=== PATIENT | male | born 1980 | race Caucasian/White ===

== ENCOUNTER 2016-07-10 22:18 | Emergency (ER) | payer MEDICAID ==
[~2016-07-10] VITALS: Ht 162.6 cm; Wt 76.6 kg
[~2016-07-10 22:18] MED LIST: BACTDS PO; BEN25 PO; CEPH-443 PO; PRED20TA PO
[2016-07-10 22:22] VITALS: Ht 162.6 cm; Wt 76.6 kg
[2016-07-10] MEDS ORDERED: morphine 2 MG INJ IV STA (23:52)
[2016-07-10] MEDS ORDERED: ONDANSETRON 4 MG INJ IV STA (23:52)
[2016-07-10] MEDS ORDERED: SOD CHLORIDE 0.9% 1,000 ML IV STA (23:52)
--- NOTE | 2016-07-11 00:10 | ERD ---
ER Documentation Chief Complaint Date/Time DATE: 07/11/16 TIME: 00:06 Chief Complaint FEVER AND LLQ ABDOMINAL PAIN SINCE YESTERDAY. NO N/V/D HPI 36-year-old male presents here in emergency department for complaints of left lower quadrant abdominal pain and fever started yesterday. Patient described the pain as sharp pain, 8/10 scale, now they are worse with anything. Patient has history of diverticulitis before. Patient denies any diarrhea or constipation. Patient denies any nausea or vomiting. Patient denies hematuria or dysuria. ROS All systems reviewed and are negative except as per history of present illness. Medications Home Meds Active Scripts Ondansetron (Ondansetron Odt) 4 Mg Tab.rapdis, 4 MG PO Q8 Y for NAUSEA AND/OR VOMITING, #30 TAB Prov:WING GUNDERSON D[employer]CLOTH FOLDER 07/11/16 Hydrocodone/Acetaminophen ([place] 5-325 Tablet) 1 Each Tablet, 1 TAB PO Q6H Y for SEVERE PAIN LEVEL 7-10, #20 TAB Prov:WING GUNDERSON NP 07/11/16 Ciprofloxacin Hcl* (Ciprofloxacin Hcl*) 500 Mg Tablet, 500 MG PO BID for 10 Days , TAB Prov:WING GUNDERSON NP 07/11/16 Metronidazole* (Flagyl*) 500 Mg Tablet, 500 MG PO TID for 10 Days, TAB Prov:WING GUNDERSON NP 07/11/16 Diphenhydramine Hcl* (Benadryl*) 25 Mg Cap, 25 MG PO Q6, #20 CAP Prov:JULIANA ROQUE PA-C 07/18/15 Prednisone* (Prednisone*) 20 Mg Tab, 40 MG PO DAILY for 4 Days, TAB Prov:JULIANA ROQUE PA-C 07/18/15 Sulfamethoxazole-Trimethoprim* (Bactrim* DS) 800-160 Mg Tab, 1 TAB PO BID for 5 Days, TAB Prov:JULIANA ROQUE PA-C 07/18/15 Cephalexin* (Keflex*) 500 Mg Capsule, 500 MG PO QID for 5 Days, CAP Prov:JULIANA ROQUE PA-C 07/18/15 Allergies Allergies: Coded Allergies: No Known Allergy (Unverified , 08/15/14) PMhx/Soc History of Surgery: No Anesthesia Reaction: No Hx Neurological Disorder: No Hx Respiratory Disorders: No Hx Psychiatric Problems: No Hx Miscellaneous Medical Probl: Yes (blood in urine 11/23) Hx Alcohol Use: Yes (hx of etoh abuse, now 3x/ week) Hx Substance Use: No Hx Tobacco Use: Yes (2-3 cig/ month) Smoking Status: Current some day smoker FmHx Family History: No coronary disease, No diabetes, No other Physical Exam Vitals Vital Signs Date Time Temp Pulse Resp B/P Pulse Ox O2 Delivery O2 Flow Rate FiO2 07/11/16 03:01 98.6 82 18 105/55 100 Room Air 07/10/16 22:22 100.8 107 20 132/74 97 Physical Exam GENERAL: The patient is well developed and appropriate for usual state of health, in no apparent distress. CHEST: Clear to auscultation bilaterally. There are no rales, wheezes or rhonchi. HEART: Regular rate and rhythm. No murmurs, clicks, rubs or gallops. No S3 or S4. ABDOMEN: Soft, tenderness in the left lower quadrant. Good bowel sounds. No rebound or guarding. No gross peritonitis. No gross organomegaly or masses. No Tapia sign or McBurney point tenderness. BACK: No midline or flank tenderness. EXTREMITIES: Equal pulses bilaterally. There is no peripheral clubbing, cyanosis or edema. No focal swelling or erythema. Full range of motion. Grossly neurovascularly intact. NEURO: Alert and oriented. Cranial nerves 2-12 intact. Motor strength in all 4 extremities with 5/5 strength. Sensation grossly intact. Normal speech and gait. SKIN: There is no apparent rash or petechia. The skin is warm and dry. HEMATOLOGIC AND LYMPHATIC: There is no evidence of excessive bruising or lymphedema. No gross cervical, axillary, or inguinal lymphadenopathy. Result Diagram: 07/10/16 0018 07/10/16 0018 Results 24 hrs Laboratory Tests Test 07/10/16 00:18 Alanine Aminotransferase (ALT/SGPT) 27IU/L Albumin 4.1g/dl Albumin/Globulin Ratio 1.07 Alkaline Phosphatase 90IU/L Anion Gap 17 Aspartate Amino Transf (AST/SGOT) 20IU/L Basophils # 0.010^3/ul Basophils % 0.2% Blood Urea Nitrogen 13mg/dl Calcium Level 8.9mg/dl Carbon Dioxide Level 26mmol/L Chloride Level 100mmol/L Creatinine 0.89mg/dl Direct Bilirubin 0.00mg/dl Eosinophils # 0.010^3/ul Eosinophils % 0.2% Globulin 3.80g/dl Glucose Level 111mg/dl Hematocrit 43.1% Hemoglobin 14.5g/dl Indirect Bilirubin 0.6mg/dl Lipase 48U/L Lymphocytes # 1.710^3/ul Lymphocytes % 10.7% Mean Corpuscular Hemoglobin 30.5pg Mean Corpuscular Hemoglobin Concent 33.6g/dl Mean Corpuscular Volume 90.5fl Mean Platelet Volume 10.8fl Monocytes # 1.810^3/ul Monocytes % 11.1% Neutrophils # 12.210^3/ul Neutrophils % 77.0% Nucleated Red Blood Cells # 0.010^3/ul Nucleated Red Blood Cells % 0.0/100WBC Platelet Count 39478^3/UL Potassium Level 4.2mmol/L Red Blood Count 4.7610^6/ul Red Cell Distribution Width 12.4% Sodium Level 139mmol/L Total Bilirubin 0.6mg/dl Total Protein 7.9g/dl Urine Bilirubin NEGATIVE Urine Clarity CLEAR Urine Color YELLOW Urine Glucose NEGATIVE% Urine Hemoglobin 2+ Urine Ketones TRACE Urine Leukocyte Esterase NEGATIVE Urine Microscopic RBC 5-10/HPF Urine Microscopic WBC NONE SEEN/HPF Urine Mucus FEW Urine Nitrite NEGATIVE Urine Specific [place] 1.020 Urine Squamous Epithelial Cells RARE Urine Total Protein 1+ Urine Urobilinogen 1.0 E.U./dL Urine pH 6.0 White Blood Count 15.810^3/ul Current Medications Medications (Trade) Dose Ordered Sig/Kaylyn Route PRN Reason Start Time Stop Time Status Last Admin Dose Admin Sodium Chloride (NS) 1,000 ml @ 1,000 mls/hr Q1H STAT IV 07/10/16 23:52 07/11/16 00:51 DC 07/11/16 00:13 Morphine Sulfate (morphine) 2 mg ONCE STAT IV 07/10/16 23:52 07/10/16 23:54 DC 07/11/16 00:12 Ondansetron HCl 4 mg 4 mg ONCE STAT IV 07/10/16 23:52 07/10/16 23:54 DC 07/11/16 00:12 Sodium Chloride (NS) 100 ml @ STK-MED ONCE .ROUTE 07/11/16 00:59 07/11/16 01:00 DC 07/11/16 01:17 Iohexol (Omnipaque 300mg/ ml) 150 ml STK-MED ONCE .ROUTE 07/11/16 00:59 07/11/16 01:00 DC 07/11/16 01:16 Acetaminophen (Tylenol Tab) 500 mg ONCE ONCE PO 07/11/16 02:49 07/11/16 02:50 DC 07/11/16 02:59 Normal saline IV bolus was given here in emergency department for rehydration, patient tolerated IV fluids.Patient was given medication for pain here in emergency department, after treatment, patient verbalized feeling much better. Patient's pain is improved.Patient was given Zofran here in the emergency department. After treatment, patient was able to tolerate po fluids here in the emergency department without any vomiting. There is no signs and symptoms of dehydration. Patient was given medicines for fever control here in the emergency department. After treatment, patient temperature improved and lower. Patient appears well and is hemodynamically stable. PROCEDURE: CT ABDOMEN/PELVIS WITH CONTRAST CLINICAL INDICATION: 36-year-old male with abdominal pain. TECHNIQUE: The study was performed utilizing a [employer] VCT 64-slice CT scanner. Direct axial sections were obtained through the abdomen and pelvis with the use of 100 cc of Omnipaque-300 nonionic intravenous contrast material. Sagittal and coronal reformations were obtained. Automated exposure control and iterative reconstruction techniques were utilized for this examination. The images were reviewed on a PACS workstation. CTD/vol = 9.7 mGy; Total Exam DLP = 650.8 mGy-cm. COMPARISON: CT abdomen/pelvis July 08, 2014; ultrasound retroperitoneum July 20, 2014. FINDINGS: There is trace right basilar subsegmental atelectasis. There is no evidence for significant pleural effusion. The liver has a normal size and contour without focal areas of abnormal density or contrast enhancement. No intrahepatic nor extrahepatic biliary ductal dilatation is seen. The gallbladder demonstrates no wall thickening nor pericholecystic fluid. No biliary stones are evident. The pancreas is without areas of abnormal attenuation or contrast enhancement. This spleen is identified and has a normal size without abnormal density or contrast enhancement. The adrenal glands are unremarkable. The kidneys are functional bilaterally. There is a right upper pole renal cyst again visualized measuring approximately 2.0 x 1.2 x 1.2 cm. No hydroureteronephrosis nor nephroureterolithiasis is evident. The urinary bladder contains urine. There are multiple diverticula identified within the descending and sigmoid colon. There is marked thickening of the sigmoid colon with surrounding inflammatory changes consist with acute sigmoid diverticulitis. The appendix is visualized and is without edema or surrounding inflammatory reaction. There is trace pelvic free fluid. The aortoiliac vessels are without aneurysmal dilatation. The osseous structures are intact. IMPRESSION: 1. Acute sigmoid diverticulitis. 2. Right upper pole renal cyst. 3. Trace pelvic free fluid. .Ankur Farley MD, Date Time Electronically viewed and signed by .Ankur Farley MD, on 07/11/2016 02:35 .M/ CC: WING GUNDERSON [employer]CL[employer] FOLDER Procedures/MDM Medical Decision Making: Patient's symptoms is likely consistent with acute diverticulitis is seen in the CT scan. There is low suspicion for abdominal emergencies at this time. Patients abdominal exam is normal at this time. Patients radiology exam does not show any abdominal emergencies at this time. There is low suspicion for appendicitis, cholecystitis, abdominal aortic aneurysms or peritonitis at this time. There is low suspicion for sepsis. Patient appears well and is hemodynamically stable. Disposition: Home. Condition: Stable Prescription Flagyl, ciprofloxacin, [place], ibuprofen, Zofran Instructions: Patient is advised to take medications as prescribed. Patient is advised to rest, increase fluid intake and do brat diet for next 1-2 days and progress as tolerated. Patient is advised that if symptoms are worse, severe abdominal pain, uncontrolled vomiting, high fever, severe flank pain, worst signs and symptoms, to return to the emergency department immediately. Otherwise, patient can follow up with primary care doctor in 5-7 days. Departure Diagnosis: Primary Impression: Diverticulitis Diverticulitis site: large intestine Diverticulitis bleeding: without bleeding Diverticulitis complication: without perforation or abscess Qualified Code: K57.32 - Diverticulitis of large intestine without perforation or abscess without bleeding Condition: Stable Patient Instructions: Diverticulitis Additional Instructions: Patient is advised to take medications as prescribed. Patient is advised to rest , increase fluid intake and do brat diet for next 1-2 days and progress as tolerated. Patient is advised that if symptoms are worse, severe abdominal pain , uncontrolled vomiting, high fever, severe flank pain, worst signs and symptoms , to return to the emergency department immediately. Otherwise, patient can follow up with primary care doctor in 5-7 days. WING GUNDERSON NP Jul 11, 2016 00:10
[2016-07-11 00:32] LABS: ADD SCAN DIFF NO
[2016-07-11 00:37] LABS: ABNORMAL IP MESSAGE 1; BASOPHILS % 0.2 % (0.0-2.0); EOSINOPHILS % 0.2 % (0.0-7.0); HEMATOCRIT 43.1 % (42.0-52.0); HEMOGLOBIN 14.5 g/dl (14.0-18.0); LYMPHOCYTES # 1.7 10^3/ul (0.8-2.9); LYMPHOCYTES % 10.7 % (15.0-51.0); MEAN CORPUSCULAR HEMOGLOBIN 30.5 pg (29.0-33.0); MEAN CORPUSCULAR HGB CONC 33.6 g/dl (32.0-37.0); MEAN CORPUSCULAR VOLUME 90.5 fl (82.0-101.0); MEAN PLATELET VOLUME 10.8 fl (7.4-10.4); MONOCYTE # 1.8 10^3/ul (0.3-0.9); MONOCYTES % 11.1 % (0.0-11.0); NEUTROPHIL # 12.2 10^3/ul (1.6-7.5); PLATELET COUNT 207 10^3/UL (140-415); RED BLOOD COUNT 4.76 10^6/ul (4.70-6.10); RED CELL DISTRIBUTION WIDTH 12.4 % (11.5-14.5); WHITE BLOOD COUNT 15.8 10^3/ul (4.8-10.8)
[2016-07-11 00:40] LABS: ADD UMIC YES; URINE BILIRUBIN (Dip) NEGATIVE (NEGATIVE); URINE BLOOD (Dip) 2+ (NEGATIVE); URINE COLOR YELLOW (YELLOW); URINE GLUCOSE (Dip) NEGATIVE (NEGATIVE); URINE KETONES (Dip) TRACE (NEGATIVE); URINE LEUKOCYTE ESTERASE (Dip) NEGATIVE (NEGATIVE); URINE NITRITE (Dip) NEGATIVE (NEGATIVE); URINE TOTAL PROTEIN (Dip) 1+ (NEGATIVE); URINE UROBILINOGEN (Dip) 1.0 E.U./dL (0.1-1.0)
[2016-07-11 00:47] LABS: ALBUMIN 4.1 g/dl (3.3-4.9)
[2016-07-11 00:48] LABS: POTASSIUM 4.2 mmol/L (3.5-5.1)
[2016-07-11 00:50] LABS: ALBUMIN/GLOBULIN RATIO 1.07; BILIRUBIN,INDIRECT 0.6 mg/dl (0-1.1); BILIRUBIN,TOTAL 0.6 mg/dl (0.2-1.3); CREATININE 0.89 mg/dl (0.61-1.24); TOTAL PROTEIN 7.9 g/dl (6.1-8.1)
[2016-07-11 00:51] LABS: CALCIUM 8.9 mg/dl (8.4-10.2)
[2016-07-11] MEDS ORDERED: IOHEXOL 300MG/ML 150 ML BTL ONE (00:59)
[2016-07-11] MEDS ORDERED: SOD CHLORIDE 0.9% 100 ML ONE (00:59)
[2016-07-11 01:11] LABS: MUCUS,URINE FEW; SQUAMOUS EPITHELIAL CELL,UR RARE
--- NOTE | 2016-07-11 02:36 | RADRPT ---
PROCEDURE: CT ABDOMEN/PELVIS WITH CONTRAST CLINICAL INDICATION: 36-year-old male with abdominal pain. TECHNIQUE: The study was performed utilizing a [employer] VCT 64-slice CT scanner. Direct axia l sections were obtained through the abdomen and pelvis with the use of 100 cc of Omnipaque-300 vicky onic intravenous contrast material. Sagittal and coronal reformations were obtained. Automated expos ure control and iterative reconstruction techniques were utilized for this examination. The images were reviewed on a PACS workstation. CTD/vol = 9.7 mGy; Total Exam DLP = 650.8 mGy-cm. COMPARISON: CT abdomen/pelvis July 08, 2014; ultrasound retroperitoneum July 20, 2014. FINDINGS: There is trace right basilar subsegmental atelectasis. There is no evidence for significant pleural effusion. The liver has a normal size and contour without focal areas of abnormal density or contr ast enhancement. No intrahepatic nor extrahepatic biliary ductal dilatation is seen. The gallbladder demonstrates no wall thickening nor pericholecystic fluid. No biliary stones are evident. The pancr eas is without areas of abnormal attenuation or contrast enhancement. This spleen is identified and has a normal size without abnormal density or contrast enhancement. The adrenal glands are unremark able. The kidneys are functional bilaterally. There is a right upper pole renal cyst again visualize d measuring approximately 2.0 x 1.2 x 1.2 cm. No hydroureteronephrosis nor nephroureterolithiasis i s evident. The urinary bladder contains urine. There are multiple diverticula identified within the descending and sigmoid colon. There is marked thickening of the sigmoid colon with surrounding inflammatory changes consist with acute sigmoid diverticulitis. The appendix is visualized and is without edema or surrounding inflammatory reaction. There is trace pelvic free fluid. The aortoilia c vessels are without aneurysmal dilatation. The osseous structures are intact. IMPRESSION: 1. Acute sigmoid diverticulitis. 2. Right upper pole renal cyst. 3. Trace pelvic free fluid. .Ankur Farley MD, Date Time Electronically viewed and signed by .Ankur Farley MD, on 07/11/2016 02:35 .M/
[2016-07-11] MEDS ORDERED: CIPR500T4 PO (02:43)
[2016-07-11] MEDS ORDERED: METR500T PO (02:43)
[2016-07-11] MEDS ORDERED: ONDA4TAB14 PO (02:43)
[2016-07-11] MEDS ORDERED: HYDR-906 PO (02:43)
[2016-07-11] MEDS ORDERED: ACETAMINOPHEN 500 MG TAB PO ONE (02:49)
[2016-07-11 03:01] VITALS: BP 105/55; PULSE 82; RESP 18; TEMP 98.6
== END 2016-07-11 03:09 | disposition home or self-care (01) ==
LOC: FTE 22:18
DX: K57.32 Diverticulitis of large intestine without perforation or abscess without bleeding (principal); F17.210 Nicotine dependence, cigarettes, uncomplicated
CPT/HCPCS: 36415; 74177; 80053; 81001; 81003; 83690; 85025; 96374; 96375; J2270; J2405; J7030; Q9967; Z7502; Z7610